=== PATIENT | male | born 1950 | race Caucasian/White ===

== ENCOUNTER 2018-06-10 06:18 | Inpatient (IN) | payer MEDICARE, OTHER ==
[~2018-06-10] VITALS: Ht 177.8 cm; Wt 87.2 kg
[2018-06-10] VITALS (11 sets, daily range): BP systolic 140–170; BP diastolic 66–89
[2018-06-10] MEDS ORDERED: labetalol 20mg/4ml (5mg/ml) syringe IV ONE (06:40)
[2018-06-10] MEDS ORDERED: morphine 4 MG/ML inj SYRINge IV ONE (06:40)
[2018-06-10] MEDS ORDERED: ondansetron/PF 4mg/2ml inj IV ONE (06:40)
[2018-06-10 07:39] LABS: BASOPHILS % (AUTO) 0.4 % (0-1); EOSINOPHILS # (AUTO) 0.8 X10'3 (0-0.9); EOSINOPHILS % (AUTO) 9.7 % (0-6); HEMATOCRIT 45.7 % (42.0-52.0); HEMOGLOBIN 12.3 g/dl (14.0-17.9); LYMPHOCYTES # (AUTO) 1.4 X10'3 (1.1-4.8); LYMPHOCYTES % (AUTO) 16.8 % (21-51); MEAN CORPUSCULAR HEMOGLOBIN 23.7 PG (27.0-31.0); MEAN CORPUSCULAR HGB CONC 26.9 % (33.0-36.5); MEAN CORPUSCULAR VOLUME 88.1 FL (78-98); MEAN PLATELET VOLUME 8.5 FL (7.4-10.4); MONOCYTES # (AUTO) 0.6 X10'3 (0-0.9); MONOCYTES % (AUTO) 7.2 % (2-12); NEUTROPHILS # (AUTO) 5.3 X10'3 (1.8-7.7); NEUTROPHILS % (AUTO) 65.9 % (42-75); PLATELET COUNT 199 X10'3 (140-440); RED BLOOD COUNT 5.19 X10'6 (4.70-6.10); RED CELL DISTRIBUTION WIDTH 13.1 % (11.5-14.5); WHITE BLOOD COUNT 8.1 X10'3 (4.5-11.0)
[2018-06-10 07:56] LABS: ALANINE AMINOTRANSFERASE 34 U/L (12-78); ALBUMIN 4.3 G/DL (3.4-5.0); ALBUMIN/GLOBULIN RATIO 1.2 (1.1-1.5); ALKALINE PHOSPHATASE 96 IU/L (46-116); ANION GAP 9 (8-16); ASPARTATE AMINO TRANSFERASE 33 U/L (10-37); BILIRUBIN,TOTAL 0.5 MG/DL (0.1-1.0); BLOOD UREA NITROGEN 18 MG/DL (7-18); BUN/CREATININE RATIO 14.6 (5.4-32.0); CALCIUM 9.3 MG/DL (8.5-10.1); CHLORIDE 105 MMOL/L (99-107); CREATININE 1.23 MG/DL (0.60-1.10); GLUCOSE 154 MG/DL (70-104); POTASSIUM 3.7 MMOL/L (3.5-5.1); SODIUM 140 MMOL/L (135-145); TOTAL CARBON DIOXIDE 25.7 MMOL/L (24-32); eGFR 59 ML/MIN
[2018-06-10 08:02] LABS: MAGNESIUM 2.1 MG/DL (1.5-2.4)
[2018-06-10] MEDS ORDERED: iohexol 350MG/ML 100ml bottle IV ONE ×2 (08:07→14:40)
[2018-06-10] MEDS ORDERED: aspirin 325mg tablet PO ONE (09:05)
[2018-06-10] MEDS ORDERED: aspirin 81mg tab.chew PO ONE ×2 (09:40→17:20)
[2018-06-10] MEDS ORDERED: potassium Cl 20 mEq SR tablet PO PRN (09:40)
[2018-06-10] MEDS ORDERED: ondansetron/PF 4mg/2ml inj IV PRN (09:40)
[2018-06-10] MEDS ORDERED: magnesium 4gm in 100ml NS 100 ML IV PRN (09:40)
[2018-06-10] MEDS ORDERED: magnesium 1gm/100ml D5W IVPB 100 ML IV PRN (09:40)
[2018-06-10] MEDS ORDERED: potassium Cl 40MEQ/NS 500ml 500 ML IV PRN ×2 (09:40)
[2018-06-10] MEDS ORDERED: morphine 4 MG/ML inj SYRINge IV PRN ×3 (09:40→17:20)
[2018-06-10] MEDS ORDERED: magnesium Cl slow-release 64mg tablet PO PRN (09:40)
[2018-06-10] MEDS ORDERED: mag hydrox/Alum hydrox/simeth 30ml oral suspension PO PRN (09:40)
[2018-06-10] MEDS ORDERED: heparin 10,000 units/1 ML INJ IV PRN (09:50)
[2018-06-10] MEDS ORDERED: heparin 10,000 units/1 ML INJ IV ONE ×2 (09:50→09:55)
[2018-06-10 10:16] LABS: INR 1.1 INR; PARTIAL THROMBOPLASTIN TIME 27 SECONDS (22-32); PROTHROMBIN TIME 10.9 SECONDS (9.0-12.0)
[2018-06-10 10:34] LABS: CLARITY,URINE CLEAR (Clear); GLUCOSE, URINE NEGATIVE (Neg); KETONES,URINE NEGATIVE (Neg); LEUKOCYTE ESTERASE ,URINE NEGATIVE (Neg); NITRITES, URINE NEGATIVE (Neg); OCCULT BLOOD,URINE NEGATIVE (Neg); PH,URINE 5.5 (4.8-8.0); PROTEIN,URINE NEGATIVE (Neg); UROBILINOGEN,URINE 0.2 E.U/dL (0.2-1.0)
[2018-06-10 10:35] LABS: COLOR,URINE STRAW (Yellow); UA COLLECTION TYPE CLN CATCH MIDSTREAM
[2018-06-10] MEDS ORDERED: ASPI-1265 PO (11:02)
[2018-06-10 11:51] LABS: BASOPHILS # (AUTO) 0.1 X10'3 (0-0.2); BASOPHILS % (AUTO) 1.2 % (0-1); EOSINOPHILS # (AUTO) 0.3 X10'3 (0-0.9); HEMATOCRIT 45.1 % (42.0-52.0); LYMPHOCYTES # (AUTO) 1.7 X10'3 (1.1-4.8); LYMPHOCYTES % (AUTO) 16.4 % (21-51); MEAN CORPUSCULAR HEMOGLOBIN 29.7 PG (27.0-31.0); MEAN CORPUSCULAR HGB CONC 33.3 % (33.0-36.5); MEAN CORPUSCULAR VOLUME 89.2 FL (78-98); MEAN PLATELET VOLUME 8.8 FL (7.4-10.4); MONOCYTES # (AUTO) 0.8 X10'3 (0-0.9); MONOCYTES % (AUTO) 7.9 % (2-12); NEUTROPHILS # (AUTO) 7.2 X10'3 (1.8-7.7); NEUTROPHILS % (AUTO) 71.5 % (42-75); PLATELET COUNT 192 X10'3 (140-440); RED BLOOD COUNT 5.05 X10'6 (4.70-6.10); RED CELL DISTRIBUTION WIDTH 13.8 % (11.5-14.5); WHITE BLOOD COUNT 10.1 X10'3 (4.5-11.0)
[2018-06-10] MEDS: nitroGLYCERIN 0.2mg/hour patch TD SCH (12:31)
[2018-06-10] MEDS ORDERED: fentaNYL/PF 50MCG/1 ML 2ML syringe ONE (14:39)
[2018-06-10] MEDS ORDERED: diphenhydrAMINE 50 mg/ml inj ONE (14:39)
[2018-06-10] MEDS ORDERED: iohexol 350 MG/ML 50ML vial IV ONE ×2 (14:40→16:03)
[2018-06-10] MEDS ORDERED: midazolam 2 mg/2 ml injection ONE (14:40)
[2018-06-10] MEDS ORDERED: LIDOcaine 1% 30ml preserv. free vial ONE (14:40)
[2018-06-10] MEDS ORDERED: hydrALAZINE 20mg/ml inj. IV ONE (16:02)
[2018-06-10] MEDS ORDERED: acetaminophen 325mg tablet PO PRN (17:20)
[2018-06-10] MEDS ORDERED: magnesium hydroxide 30ml (MOM) UD suspension PO PRN (17:20)
[2018-06-10] MEDS ORDERED: cyclobenzaprine 10mg tablet PO PRN (17:20)
[2018-06-10] MEDS ORDERED: OXAZEpam 15mg capsule PO PRN (17:20)
[2018-06-10] MEDS ORDERED: proCHLORperazine 10 MG/2 ml inj IV PRN (17:20)
[2018-06-10] MEDS ORDERED: nitroGLYCERIN-Tridil 50MG/D5W 250 ML IV PRN (17:20)
[2018-06-10] MEDS ORDERED: morphine 10mg/ml inj. IV PRN (17:20)
[2018-06-10] MEDS ORDERED: HYDROcodone/acetaminophen 10/325mg tab PO PRN ×2 (17:20)
[2018-06-10] MEDS ORDERED: MESSAGE TO NURSING PO ONE ×4 (17:35)
[2018-06-10] MEDS ORDERED: dextrose 50%-water 50ml dispensing syringe IV PRN (17:35)
[2018-06-10] MEDS ORDERED: cefazolin/dext.iso 2gm/50ml 50 ML IV ONE (17:35)
[2018-06-10] MEDS ORDERED: vancomycin/NS 1 GM ADD-VANTAGE 250 ML IV ONE (17:35)
[2018-06-10] MEDS: normal saline 1000ml 1,000 ML IV SCH (17:38)
[2018-06-10 17:51] LABS: HEMATOCRIT 43.7 % (42.0-52.0); HEMOGLOBIN 14.9 g/dl (14.0-17.9); MEAN CORPUSCULAR HEMOGLOBIN 30.1 PG (27.0-31.0); MEAN CORPUSCULAR VOLUME 88.4 FL (78-98); MEAN PLATELET VOLUME 9.4 FL (7.4-10.4); PLATELET COUNT 201 X10'3 (140-440); RED BLOOD COUNT 4.94 X10'6 (4.70-6.10); RED CELL DISTRIBUTION WIDTH 13.9 % (11.5-14.5); WHITE BLOOD COUNT 13.2 X10'3 (4.5-11.0)
[2018-06-10] MEDS: insulin Lispro (HumaLOG) vial - multi-dose SQ SCH (18:00)
[2018-06-10 18:01] LABS: ALBUMIN 3.8 G/DL (3.4-5.0); ANION GAP 9 (8-16); BLOOD UREA NITROGEN 17 MG/DL (7-18); CALCIUM 8.7 MG/DL (8.5-10.1); CHLORIDE 104 MMOL/L (99-107); CREATININE 1.13 MG/DL (0.60-1.10); POTASSIUM 3.5 MMOL/L (3.5-5.1); SODIUM 139 MMOL/L (135-145); TOTAL CARBON DIOXIDE 25.9 MMOL/L (24-32); eGFR 65 ML/MIN
[2018-06-10 18:02] LABS: GLUCOSE 107 MG/DL (70-104); INR 1.1 INR; PARTIAL THROMBOPLASTIN TIME 43 SECONDS (22-32); PROTHROMBIN TIME 11.4 SECONDS (9.0-12.0)
[2018-06-10 18:03] LABS: HEMOGLOBIN A1C 5.9 % (4.5-6.2)
[2018-06-10] MEDS: metoprolol tartrate 25mg tablet PO SCH ×2 (20:00→20:21)
[2018-06-10] MEDS: mupirocin 2% nasal ointment 1gm UD NS SCH (20:21)
[2018-06-10] MEDS: docusate sod 100mg capsule PO SCH (20:21)
[2018-06-11] VITALS (24 sets, daily range): BP systolic 117–159; BP diastolic 60–81
[2018-06-11] MEDS: normal saline 1000ml 1,000 ML IV SCH (00:50)
[2018-06-11 01:10] LABS: ALBUMIN 3.5 G/DL (3.4-5.0); ANION GAP 10 (8-16); BLOOD UREA NITROGEN 14 MG/DL (7-18); BUN/CREATININE RATIO 12.7 (5.4-32.0); CALCIUM 8.6 MG/DL (8.5-10.1); CHLORIDE 106 MMOL/L (99-107); GLUCOSE 118 MG/DL (70-104); MAGNESIUM 2.1 MG/DL (1.5-2.4); POTASSIUM 3.4 MMOL/L (3.5-5.1); SODIUM 141 MMOL/L (135-145); TOTAL CARBON DIOXIDE 25.2 MMOL/L (24-32); eGFR 67 ML/MIN
[2018-06-11 02:05] LABS: BASOPHILS % (AUTO) 0.4 % (0-1); EOSINOPHILS # (AUTO) 0.5 X10'3 (0-0.9); EOSINOPHILS % (AUTO) 4.3 % (0-6); HEMATOCRIT 40.4 % (42.0-52.0); HEMOGLOBIN 13.8 g/dl (14.0-17.9); LYMPHOCYTES # (AUTO) 1.5 X10'3 (1.1-4.8); LYMPHOCYTES % (AUTO) 12.5 % (21-51); MEAN CORPUSCULAR HEMOGLOBIN 30.2 PG (27.0-31.0); MEAN CORPUSCULAR VOLUME 88.7 FL (78-98); MEAN PLATELET VOLUME 9.9 FL (7.4-10.4); MONOCYTES # (AUTO) 1.3 X10'3 (0-0.9); MONOCYTES % (AUTO) 10.6 % (2-12); NEUTROPHILS # (AUTO) 8.6 X10'3 (1.8-7.7); NEUTROPHILS % (AUTO) 72.2 % (42-75); PLATELET COUNT 193 X10'3 (140-440); RED BLOOD COUNT 4.56 X10'6 (4.70-6.10); RED CELL DISTRIBUTION WIDTH 13.8 % (11.5-14.5); WHITE BLOOD COUNT 11.9 X10'3 (4.5-11.0)
[2018-06-11] MEDS: potassium Cl 20 mEq SR tablet PO PRN ×3 (04:53→21:01)
[2018-06-11] MEDS: K and/or MAG REPLACEMENT MC SCH (08:00)
[2018-06-11] MEDS ORDERED: nitroGLYCERIN 0.2mg/hour patch TD SCH (08:00)
[2018-06-11] MEDS: metoprolol tartrate 25mg tablet PO SCH ×2 (08:00)
[2018-06-11 08:05] LABS: ABG BASE EXCESS 0.4 mmol/L (-2.0-3.0); ABG HCO3 24.5 mmol/L (22.0-26.0); ABG OXYGEN SATURATION 95.3 % (95-98); ABG PCO2 (T) 37.6 mmHg (35.0-48.0); ABG PH (T) 7.431 (7.350-7.450); FCOHb 0.7 % (0.5-1.5); FMetHb 0.3 % (0.3-1.12); FO2Hb 94.3 % (94-100); TOTAL HEMOGLOBIN 14.8 G/dl (14.0-18.0)
[2018-06-11] MEDS: atorvastatin 20mg tablet PO SCH (08:42)
[2018-06-11] MEDS: aspirin 81mg tab.chew PO SCH (08:42)
[2018-06-11] MEDS: mupirocin 2% nasal ointment 1gm UD NS SCH ×2 (08:43→21:00)
[2018-06-11] MEDS: docusate sod 100mg capsule PO SCH ×2 (08:43→21:00)
[2018-06-11] MEDS: insulin Lispro (HumaLOG) vial - multi-dose SQ SCH ×3 (09:00→17:53)
[2018-06-11] MEDS: nitroGLYCERIN 0.2mg/hour patch TD SCH (09:33)
[2018-06-11] MEDS ORDERED: MESSAGE TO NURSING PO ONE (10:00)
[2018-06-11] MEDS ORDERED: hydrALAZINE 20mg/ml inj. IV PRN (11:20)
[2018-06-11] MEDS: Potassium Cl inj 20 MEQ in normal saline 1000ml 1,000 ML IV SCH (14:47)
[2018-06-11] MEDS: insulin regular, human inj. 100 UNITS in normal saline 100ml IV soln 100 ML IV SCH ×2 (17:35)
[2018-06-11] MEDS: metoprolol tartrate 12.5mg (1/2 tablet) PO SCH (21:00)
[2018-06-12] VITALS (22 sets, daily range): BP systolic 96–172; BP diastolic 53–91
[2018-06-12 03:17] LABS: BASOPHILS % (AUTO) 0.4 % (0-1); EOSINOPHILS # (AUTO) 0.6 X10'3 (0-0.9); HEMOGLOBIN 14.4 g/dl (14.0-17.9); LYMPHOCYTES # (AUTO) 1.8 X10'3 (1.1-4.8); LYMPHOCYTES % (AUTO) 16.7 % (21-51); MEAN CORPUSCULAR HEMOGLOBIN 30.2 PG (27.0-31.0); MEAN CORPUSCULAR HGB CONC 34.2 % (33.0-36.5); MEAN CORPUSCULAR VOLUME 88.3 FL (78-98); MEAN PLATELET VOLUME 8.4 FL (7.4-10.4); MONOCYTES # (AUTO) 1.2 X10'3 (0-0.9); MONOCYTES % (AUTO) 11.6 % (2-12); NEUTROPHILS % (AUTO) 65.3 % (42-75); PLATELET COUNT 186 X10'3 (140-440); RED BLOOD COUNT 4.76 X10'6 (4.70-6.10); RED CELL DISTRIBUTION WIDTH 13.7 % (11.5-14.5); WHITE BLOOD COUNT 10.7 X10'3 (4.5-11.0)
[2018-06-12 03:30] LABS: INR 1.1 INR; PROTHROMBIN TIME 11.3 SECONDS (9.0-12.0)
[2018-06-12 03:37] LABS: ALBUMIN 3.4 G/DL (3.4-5.0); ANION GAP 9 (8-16); BLOOD UREA NITROGEN 12 MG/DL (7-18); BUN/CREATININE RATIO 11.7 (5.4-32.0); CHLORIDE 106 MMOL/L (99-107); CHOL/HDL RATIO 3.4 (0.00-4.99); CHOLESTEROL 168 MG/DL (0-200); CREATININE 1.03 MG/DL (0.60-1.10); GLUCOSE 115 MG/DL (70-104); HDL CHOLESTEROL 50 MG/DL (35-60); LDL CHOLESTEROL 106 MG/DL (50-100); MAGNESIUM 2.3 MG/DL (1.5-2.4); SODIUM 140 MMOL/L (135-145); TOTAL CARBON DIOXIDE 24.7 MMOL/L (24-32); TRIGLYCERIDES 78 MG/DL (20-135); eGFR 72 ML/MIN
[2018-06-12] MEDS: Potassium Cl inj 20 MEQ in normal saline 1000ml 1,000 ML IV SCH (03:41)
[2018-06-12 07:40] LABS: PHOSPHORUS 2.8 MG/DL (2.3-4.5)
[2018-06-12] MEDS: metoprolol tartrate 12.5mg (1/2 tablet) PO SCH (07:51)
[2018-06-12] MEDS: docusate sod 100mg capsule PO SCH ×2 (07:51→20:00)
[2018-06-12] MEDS: atorvastatin 20mg tablet PO SCH (07:51)
[2018-06-12] MEDS: nitroGLYCERIN 0.2mg/hour patch TD SCH (07:51)
[2018-06-12] MEDS: aspirin 81mg tab.chew PO SCH (07:51)
[2018-06-12] MEDS: insulin regular, human inj. 100 UNITS in normal saline 100ml IV soln 100 ML IV SCH ×10 (07:59→21:22)
[2018-06-12] MEDS: K and/or MAG REPLACEMENT MC SCH (08:00)
[2018-06-12] MEDS: mupirocin 2% nasal ointment 1gm UD NS SCH ×2 (08:06→20:33)
[2018-06-12] MEDS ORDERED: papaverine 30 mg/ml 2ml inj. ONE ×2 (09:00→12:16)
[2018-06-12] MEDS: insulin Lispro (HumaLOG) vial - multi-dose SQ SCH ×3 (09:00→18:00)
[2018-06-12] MEDS ORDERED: heparin 10,000 units/1 ML INJ ONE ×2 (09:00→12:16)
[2018-06-12] MEDS ORDERED: LORazepam 2 mg/ml vial IV ONE (10:30)
[2018-06-12] MEDS ORDERED: famotidine 20mg tablet PO ONE (10:30)
[2018-06-12] MEDS ORDERED: sevoflurane 250ml liquid IH ONE ×2 (11:00→12:16)
[2018-06-12 11:28] LABS: CLARITY,URINE CLEAR (Clear); COLOR,URINE YELLOW (Yellow); GLUCOSE, URINE NEGATIVE (Neg); KETONES,URINE TRACE mg/dl (Neg); LEUKOCYTE ESTERASE ,URINE NEGATIVE (Neg); NITRITES, URINE NEGATIVE (Neg); OCCULT BLOOD,URINE NEGATIVE (Neg); PH,URINE 6.5 (4.8-8.0); PROTEIN,URINE NEGATIVE (Neg); UA COLLECTION TYPE NON-SPECIFIED; UROBILINOGEN,URINE 0.2 E.U/dL (0.2-1.0)
[2018-06-12 11:46] LABS: TOTAL PROTEIN,URINE RANDOM 10.2 MG/DL
[2018-06-12] MEDS ORDERED: MIDAZolam 1mg/ml 10ml vial ONE (12:06)
[2018-06-12] MEDS ORDERED: albumin (Human) 5% 250ml 250 ML IV ONE ×2 (12:07→16:46)
[2018-06-12] MEDS ORDERED: SUFENTANIL CITRATE 50 MCG/ML 2ml ampule IV ONE (12:07)
[2018-06-12] MEDS ORDERED: pancuronium br 1mg/ml inj IV ONE (12:07)
[2018-06-12] MEDS ORDERED: LIDOcaine 2% (20mg/ml) 5ml vial ONE (12:07)
[2018-06-12] MEDS ORDERED: propofol inj 20 ML IV ONE (12:07)
[2018-06-12] MEDS ORDERED: calcium chloride 100 MG/1 ML inj IV ONE (12:16)
[2018-06-12] MEDS ORDERED: sodium bicarbonate (8.4%) 1 mEq/ml syringe ONE (12:16)
[2018-06-12] MEDS ORDERED: LIDOcaine 2% (20 mg/ml) 5ml cardiac syringe ONE (12:16)
[2018-06-12] MEDS ORDERED: protamine sulf. 10mg/ml inj. IV ONE (12:16)
[2018-06-12] MEDS ORDERED: potassium Cl 2 mEq/ml inj IV ONE (12:16)
[2018-06-12] MEDS ORDERED: aminocaproic acid 250 MG/1 ML inj. ONE (12:16)
[2018-06-12] MEDS ORDERED: heparin 1,000 units/ml 10ml inj ONE (12:16)
[2018-06-12] MEDS ORDERED: magnesium sulf 1 GM/2 ML ONE (12:16)
[2018-06-12] MEDS ORDERED: NORepinephrine bitartrate 8 MG in NS 250 ML BAG (32 mcg/ml) IV ONE (12:16)
[2018-06-12] MEDS ORDERED: albumin (human) 25% 100 ML IV solution IV ONE (12:16)
[2018-06-12] MEDS ORDERED: phenylephrine 10mg/ml inj. ONE ×2 (12:16)
[2018-06-12 13:01] LABS: ABG HCO3 21.6 mmol/L (22.0-26.0); ABG OXYGEN SATURATION 99.5 % (95-98); ABG PCO2 30.2 mmHg (35.0-45.0); ABG PH 7.472 (7.350-7.450); ABG PO2 515.8 mmHg (60.0-100.0); CL (ABG) 108 mmol/L (99-107); FCOHb 0.7 % (0.5-1.5); FMetHb 0.7 % (0.3-1.12); FO2Hb 98.1 % (94-100); GLUCOSE (ABG) 100 mg/dl (70-105); IONIZED CA (ABG) 1.12 mmol/L (1.03-1.32); K (ABG) 3.7 mmol/L (3.3-5.1); NA (ABG) 140 mmol/L (135-145); TOTAL HEMOGLOBIN 14.1 G/dl (14.0-18.0)
[2018-06-12] MEDS ORDERED: papaverine 30 mg/ml 2ml inj. IA ONE (13:24)
[2018-06-12] MEDS ORDERED: heparin 10,000 units/1 ML INJ IR ONE (13:25)
[2018-06-12 14:30] LABS: ABG BASE EXCESS -1.6 mmol/L (-2.0-3.0); ABG HCO3 22.1 mmol/L (22.0-26.0); ABG OXYGEN SATURATION 99.3 % (95-98); ABG PO2 403.3 mmHg (60.0-100.0); CL (ABG) 102 mmol/L (99-107); FCOHb 0.6 % (0.5-1.5); FMetHb 0.3 % (0.3-1.12); FO2Hb 98.4 % (94-100); GLUCOSE (ABG) 106 mg/dl (70-105); IONIZED CA (ABG) 1.08 mmol/L (1.03-1.32); K (ABG) 4.5 mmol/L (3.3-5.1); NA (ABG) 135 mmol/L (135-145); TOTAL HEMOGLOBIN 12.2 G/dl (14.0-18.0)
[2018-06-12 14:55] LABS: ABG BASE EXCESS VENOUS -1.7 mmol/L; ABG HCO3 VENOUS 22.7 mmol/L; ABG PCO2 VENOUS 37.1 mmHg; ABG PO2 VENOUS 58.6 mmHg; CL (ABG) 104 mmol/L (99-107); FHHb VENOUS 9.2 %; FMetHb VENOUS 0.4 %; FO2Hb VENOUS 89.4 %; GLUCOSE (ABG) 111 mg/dl (70-105); IONIZED CA (ABG) 1.06 mmol/L (1.03-1.32); K (ABG) 4.8 mmol/L (3.3-5.1); NA (ABG) 135 mmol/L (135-145); TOTAL HEMOGLOBIN 11.9 G/dl (14.0-18.0)
[2018-06-12 15:15] LABS: ABG BASE EXCESS -1.9 mmol/L (-2.0-3.0); ABG HCO3 21.8 mmol/L (22.0-26.0); ABG OXYGEN SATURATION 99.4 % (95-98); ABG PCO2 33.9 mmHg (35.0-45.0); ABG PH 7.427 (7.350-7.450); ABG PO2 377.7 mmHg (60.0-100.0); CL (ABG) 105 mmol/L (99-107); FCOHb 0.8 % (0.5-1.5); FMetHb 0.3 % (0.3-1.12); FO2Hb 98.3 % (94-100); GLUCOSE (ABG) 121 mg/dl (70-105); IONIZED CA (ABG) 1.03 mmol/L (1.03-1.32); K (ABG) 4.9 mmol/L (3.3-5.1); NA (ABG) 137 mmol/L (135-145); TOTAL HEMOGLOBIN 11.6 G/dl (14.0-18.0)
[2018-06-12 15:51] LABS: ABG BASE EXCESS -0.8 mmol/L (-2.0-3.0); ABG HCO3 23.3 mmol/L (22.0-26.0); ABG OXYGEN SATURATION 99.4 % (95-98); ABG PCO2 36.8 mmHg (35.0-45.0); ABG PO2 497.3 mmHg (60.0-100.0); CL (ABG) 105 mmol/L (99-107); FCOHb 0.5 % (0.5-1.5); FMetHb 0.4 % (0.3-1.12); FO2Hb 98.5 % (94-100); GLUCOSE (ABG) 118 mg/dl (70-105); IONIZED CA (ABG) 1.16 mmol/L (1.03-1.32); K (ABG) 5.3 mmol/L (3.3-5.1); NA (ABG) 136 mmol/L (135-145)
[2018-06-12 16:11] LABS: ABG BASE EXCESS VENOUS -1.9 mmol/L; ABG HCO3 VENOUS 23.5 mmol/L; ABG PCO2 VENOUS 42.5 mmHg; ABG PO2 VENOUS 47.9 mmHg; CL (ABG) 104 mmol/L (99-107); FCOHb VENOUS 0.9 %; FHHb VENOUS 17.5 %; FMetHb VENOUS 0.6 %; GLUCOSE (ABG) 119 mg/dl (70-105); IONIZED CA (ABG) 1.24 mmol/L (1.03-1.32); K (ABG) 4.7 mmol/L (3.3-5.1); NA (ABG) 137 mmol/L (135-145); TOTAL HEMOGLOBIN 11.9 G/dl (14.0-18.0)
[2018-06-12] MEDS ORDERED: nitroGLYCERIN-Tridil 50MG/D5W 250 ML IV PRN (16:29)
[2018-06-12] MEDS ORDERED: DOPamine 400mg/D5W 250ml 250 ML IV PRN (16:29)
[2018-06-12] MEDS ORDERED: sodium chloride 0.45% 1,000 ML IV SCH (16:29)
[2018-06-12] MEDS ORDERED: magnesium hydroxide 30ml (MOM) UD suspension PO PRN (16:30)
[2018-06-12] MEDS ORDERED: morphine 4 MG/ML inj SYRINge IV PRN (16:30)
[2018-06-12] MEDS ORDERED: Neutra Phos packet PO PRN (16:30)
[2018-06-12] MEDS ORDERED: sodium phosphate inj. 15 MMOL in dextrose 5%-water 150 ML IV PRN (16:30)
[2018-06-12] MEDS ORDERED: magnesium 4gm in 100ml NS 100 ML IV PRN (16:30)
[2018-06-12] MEDS ORDERED: sodium phosphate inj. 30 MMOL in dextrose 5%-water 250 ML IV PRN (16:30)
[2018-06-12] MEDS ORDERED: potassium Cl 20mEq/100mL bag 100 ML IV PRN ×2 (16:30)
[2018-06-12] MEDS ORDERED: normal saline 250ml IV soln 250 ML IV PRN (16:30)
[2018-06-12] MEDS ORDERED: dextrose 50%-water 50ml dispensing syringe IV PRN (16:30)
[2018-06-12] MEDS ORDERED: metoclopramide 5 mg/ml inj IV PRN (16:30)
[2018-06-12] MEDS ORDERED: ondansetron/PF 4mg/2ml inj IV PRN (16:30)
[2018-06-12] MEDS ORDERED: acetaminophen 325mg tablet PO PRN (16:30)
[2018-06-12] MEDS ORDERED: magnesium 1gm/100ml D5W IVPB 100 ML IV PRN (16:30)
[2018-06-12] MEDS ORDERED: HYDROcodone/acetaminophen 10/325mg tab PO PRN (16:30)
[2018-06-12] MEDS ORDERED: albumin (Human) 5% 250ml 250 ML IV PRN (16:30)
[2018-06-12] MEDS ORDERED: insulin regular, human inj. 100 UNITS in normal saline 100ml IV soln 100 ML IV SCH ×2 (16:30)
[2018-06-12 17:20] LABS: ABG BASE EXCESS -2.9 mmol/L (-2.0-3.0); ABG HCO3 22.7 mmol/L (22.0-26.0); ABG OXYGEN SATURATION 98.1 % (95-98); ABG PCO2 (T) 41.2 mmHg (35.0-48.0); ABG PH (T) 7.356 (7.350-7.450); ABG PO2 (T) 124.5 mmHg (83-108); FCOHb 0.5 % (0.5-1.5); FMetHb 0.4 % (0.3-1.12); FO2Hb 97.2 % (94-100); MINUTE VOLUME 7 L/min; PATIENT TEMPERATURE 36.4; PEEP 5 cm H2O; RESPIRATORY RATE 10 b/min; RESPIRATORY RATE (OBSERVED) 10 b/min; TIDAL VOLUME 600 mL; TOTAL HEMOGLOBIN 14.2 G/dl (14.0-18.0)
[2018-06-12 17:26] LABS: BASOPHILS % (AUTO) 0.1 % (0-1); EOSINOPHILS # (AUTO) 0.3 X10'3 (0-0.9); EOSINOPHILS % (AUTO) 1.7 % (0-6); HEMATOCRIT 38.9 % (42.0-52.0); HEMOGLOBIN 13.4 g/dl (14.0-17.9); LYMPHOCYTES # (AUTO) 0.7 X10'3 (1.1-4.8); LYMPHOCYTES % (AUTO) 4.6 % (21-51); MEAN CORPUSCULAR HEMOGLOBIN 30.5 PG (27.0-31.0); MEAN CORPUSCULAR HGB CONC 34.3 % (33.0-36.5); MEAN PLATELET VOLUME 8.3 FL (7.4-10.4); MONOCYTES # (AUTO) 0.9 X10'3 (0-0.9); NEUTROPHILS # (AUTO) 12.9 X10'3 (1.8-7.7); NEUTROPHILS % (AUTO) 87.6 % (42-75); PLATELET COUNT 128 X10'3 (140-440); RED BLOOD COUNT 4.37 X10'6 (4.70-6.10); RED CELL DISTRIBUTION WIDTH 13.8 % (11.5-14.5); WHITE BLOOD COUNT 14.8 X10'3 (4.5-11.0)
[2018-06-12 17:36] LABS: INR 1.2 INR; PARTIAL THROMBOPLASTIN TIME 32 SECONDS (22-32); PROTHROMBIN TIME 12.3 SECONDS (9.0-12.0)
[2018-06-12 17:42] LABS: ALANINE AMINOTRANSFERASE 31 U/L (12-78); ALBUMIN 3.7 G/DL (3.4-5.0); ALBUMIN/GLOBULIN RATIO 1.5 (1.1-1.5); ALKALINE PHOSPHATASE 47 IU/L (46-116); ANION GAP 7 (8-16); ASPARTATE AMINO TRANSFERASE 101 U/L (10-37); BLOOD UREA NITROGEN 12 MG/DL (7-18); BUN/CREATININE RATIO 11.2 (5.4-32.0); CALCIUM 8.4 MG/DL (8.5-10.1); CHLORIDE 108 MMOL/L (99-107); CREATININE 1.07 MG/DL (0.60-1.10); GLUCOSE 104 MG/DL (70-104); MAGNESIUM 3.5 MG/DL (1.5-2.4); PHOSPHORUS 1.9 MG/DL (2.3-4.5); POTASSIUM 4.1 MMOL/L (3.5-5.1); SODIUM 141 MMOL/L (135-145); TOTAL CARBON DIOXIDE 26.3 MMOL/L (24-32); TOTAL PROTEIN 6.1 G/DL (6.4-8.2); eGFR 69 ML/MIN
[2018-06-12] MEDS: niCARDipine/sod cl 20mg/200ml 200 ML IV PRN ×2 (17:50→21:52)
[2018-06-12] MEDS ORDERED: insulin Lispro (HumaLOG) vial - multi-dose SQ SCH (18:00)
[2018-06-12] MEDS: morphine 4 MG/ML inj SYRINge IV PRN ×3 (18:03→23:20)
[2018-06-12] MEDS: vancomycin/NS 1 GM ADD-VANTAGE 250 ML IV SCH (20:33)
[2018-06-12 21:32] LABS: BASOPHILS % (AUTO) 0 % (0-1); EOSINOPHILS # (AUTO) 0.3 X10'3 (0-0.9); EOSINOPHILS % (AUTO) 1.8 % (0-6); HEMATOCRIT 37.8 % (42.0-52.0); HEMOGLOBIN 12.9 g/dl (14.0-17.9); LYMPHOCYTES # (AUTO) 0.6 X10'3 (1.1-4.8); LYMPHOCYTES % (AUTO) 3.4 % (21-51); MEAN CORPUSCULAR HEMOGLOBIN 30.3 PG (27.0-31.0); MEAN CORPUSCULAR HGB CONC 34.1 % (33.0-36.5); MEAN CORPUSCULAR VOLUME 88.8 FL (78-98); MEAN PLATELET VOLUME 8.5 FL (7.4-10.4); MONOCYTES # (AUTO) 0.6 X10'3 (0-0.9); MONOCYTES % (AUTO) 3.3 % (2-12); NEUTROPHILS # (AUTO) 15.5 X10'3 (1.8-7.7); NEUTROPHILS % (AUTO) 91.5 % (42-75); PLATELET COUNT 147 X10'3 (140-440); RED BLOOD COUNT 4.26 X10'6 (4.70-6.10); RED CELL DISTRIBUTION WIDTH 14.1 % (11.5-14.5)
[2018-06-12 21:49] LABS: ALBUMIN 3.6 G/DL (3.4-5.0); ANION GAP 10 (8-16); BLOOD UREA NITROGEN 17 MG/DL (7-18); BUN/CREATININE RATIO 13.4 (5.4-32.0); CALCIUM 8.4 MG/DL (8.5-10.1); CHLORIDE 108 MMOL/L (99-107); CREATININE 1.27 MG/DL (0.60-1.10); GLUCOSE 162 MG/DL (70-104); POTASSIUM 3.8 MMOL/L (3.5-5.1); SODIUM 142 MMOL/L (135-145); TOTAL CARBON DIOXIDE 24.3 MMOL/L (24-32); eGFR 57 ML/MIN
[2018-06-12] MEDS: potassium Cl 20mEq/100mL bag 100 ML IV PRN ×2 (22:49→23:42)
[2018-06-13] VITALS (23 sets, daily range): BP systolic 122–174; BP diastolic 54–82
[2018-06-13] MEDS: ceFAZolin 1GM/D5W- ADD-VANTAGE 50 ML IV SCH ×4 (00:19→23:55)
[2018-06-13] MEDS: morphine 4 MG/ML inj SYRINge IV PRN (00:36)
[2018-06-13] MEDS: niCARDipine/sod cl 20mg/200ml 200 ML IV PRN ×3 (01:16→06:40)
[2018-06-13 03:20] LABS: ABG BASE EXCESS -2.7 mmol/L (-2.0-3.0); ABG HCO3 21.8 mmol/L (22.0-26.0); ABG OXYGEN SATURATION 93.7 % (95-98); ABG PCO2 (T) 37.7 mmHg (35.0-48.0); ABG PH (T) 7.382 (7.350-7.450); ABG PO2 (T) 70.2 mmHg (83-108); FCOHb 0.1 % (0.5-1.5); FMetHb 0.2 % (0.3-1.12); FO2Hb 93.4 % (94-100); PATIENT TEMPERATURE 37.3; PEEP 5 cm H2O; RESPIRATORY RATE (OBSERVED) 11 b/min; TOTAL HEMOGLOBIN 13.6 G/dl (14.0-18.0)
[2018-06-13 03:53] LABS: BASOPHILS % (AUTO) 0 % (0-1); EOSINOPHILS % (AUTO) 0 % (0-6); HEMATOCRIT 37.4 % (42.0-52.0); HEMOGLOBIN 12.6 g/dl (14.0-17.9); LYMPHOCYTES # (AUTO) 0.5 X10'3 (1.1-4.8); LYMPHOCYTES % (AUTO) 2.8 % (21-51); MEAN CORPUSCULAR HEMOGLOBIN 30.1 PG (27.0-31.0); MEAN CORPUSCULAR HGB CONC 33.8 % (33.0-36.5); MEAN CORPUSCULAR VOLUME 89.3 FL (78-98); MEAN PLATELET VOLUME 9.2 FL (7.4-10.4); MONOCYTES # (AUTO) 0.7 X10'3 (0-0.9); MONOCYTES % (AUTO) 3.9 % (2-12); NEUTROPHILS # (AUTO) 16.9 X10'3 (1.8-7.7); NEUTROPHILS % (AUTO) 93.3 % (42-75); PLATELET COUNT 149 X10'3 (140-440); RED BLOOD COUNT 4.19 X10'6 (4.70-6.10); RED CELL DISTRIBUTION WIDTH 13.9 % (11.5-14.5); WHITE BLOOD COUNT 18.1 X10'3 (4.5-11.0)
[2018-06-13 04:09] LABS: ALANINE AMINOTRANSFERASE 34 U/L (12-78); ALBUMIN 3.7 G/DL (3.4-5.0); ALBUMIN/GLOBULIN RATIO 1.4 (1.1-1.5); ALKALINE PHOSPHATASE 50 IU/L (46-116); ANION GAP 9 (8-16); ASPARTATE AMINO TRANSFERASE 98 U/L (10-37); BILIRUBIN,TOTAL 0.7 MG/DL (0.1-1.0); BLOOD UREA NITROGEN 19 MG/DL (7-18); BUN/CREATININE RATIO 15.3 (5.4-32.0); CALCIUM 8.8 MG/DL (8.5-10.1); CHLORIDE 109 MMOL/L (99-107); CREATININE 1.24 MG/DL (0.60-1.10); GLUCOSE 127 MG/DL (70-104); MAGNESIUM 2.9 MG/DL (1.5-2.4); PHOSPHORUS 3.1 MG/DL (2.3-4.5); POTASSIUM 4.4 MMOL/L (3.5-5.1); SODIUM 142 MMOL/L (135-145); TOTAL CARBON DIOXIDE 23.9 MMOL/L (24-32); TOTAL PROTEIN 6.4 G/DL (6.4-8.2); eGFR 58 ML/MIN
[2018-06-13 04:19] LABS: INR 1.1 INR; PARTIAL THROMBOPLASTIN TIME 25 SECONDS (22-32); PROTHROMBIN TIME 11.6 SECONDS (9.0-12.0)
[2018-06-13] MEDS: insulin regular, human inj. 100 UNITS in normal saline 100ml IV soln 100 ML IV SCH ×2 (05:04)
[2018-06-13 05:11] LABS: ACTIVATED CLOTTING TIME 120 SEC (101-148)
[2018-06-13 05:11] LABS: ACT @ 1.70 U 264 SEC (193-297); ACT @ 2.84 U 353 SEC (260-420); BASELINE ACT 139 SEC (101-148); PATIENT WEIGHT 87.0k KG
[2018-06-13] MEDS: mupirocin 2% nasal ointment 1gm UD NS SCH ×2 (07:43→20:24)
[2018-06-13] MEDS: pantoprazole 40mg Tablet.DR PO SCH (07:43)
[2018-06-13] MEDS: atorvastatin 10mg tablet PO SCH (07:43)
[2018-06-13] MEDS: metoprolol tartrate 12.5mg (1/2 tablet) PO SCH ×2 (07:43→20:24)
[2018-06-13] MEDS: docusate sod 100mg capsule PO SCH ×2 (07:43→20:24)
[2018-06-13] MEDS: aspirin 325mg tablet, delayed-release (Ecotrin) PO SCH (07:43)
[2018-06-13] MEDS: K and/or MAG REPLACEMENT MC SCH (08:00)
[2018-06-13] MEDS: insulin Lispro (HumaLOG) vial - multi-dose SQ SCH ×2 (08:20→13:00)
[2018-06-13] MEDS: vancomycin/NS 1 GM ADD-VANTAGE 250 ML IV SCH ×2 (08:23→20:24)
[2018-06-13 10:47] LABS: ALBUMIN 3.5 G/DL (3.4-5.0); ANION GAP 6 (8-16); BLOOD UREA NITROGEN 18 MG/DL (7-18); BUN/CREATININE RATIO 16.5 (5.4-32.0); CALCIUM 8.5 MG/DL (8.5-10.1); CHLORIDE 110 MMOL/L (99-107); CREATININE 1.09 MG/DL (0.60-1.10); GLUCOSE 116 MG/DL (70-104); POTASSIUM 4.6 MMOL/L (3.5-5.1); SODIUM 141 MMOL/L (135-145); TOTAL CARBON DIOXIDE 24.7 MMOL/L (24-32); eGFR 67 ML/MIN
[2018-06-13] MEDS: ketorolac tromethamine 15mg/ml inj. IV SCH ×2 (14:00→20:24)
[2018-06-13] MEDS: HYDROcodone/acetaminophen 10/325mg tab PO PRN (17:11)
[2018-06-14] VITALS (14 sets, daily range): BP systolic 119–167; BP diastolic 63–85
[2018-06-14] MEDS: ketorolac tromethamine 15mg/ml inj. IV SCH ×2 (02:31→08:26)
[2018-06-14 04:25] LABS: BASOPHILS % (AUTO) 0 % (0-1); EOSINOPHILS # (AUTO) 0.2 X10'3 (0-0.9); EOSINOPHILS % (AUTO) 1.4 % (0-6); HEMATOCRIT 33.1 % (42.0-52.0); LYMPHOCYTES # (AUTO) 0.6 X10'3 (1.1-4.8); LYMPHOCYTES % (AUTO) 3.2 % (21-51); MEAN CORPUSCULAR HEMOGLOBIN 29.9 PG (27.0-31.0); MEAN CORPUSCULAR HGB CONC 33.1 % (33.0-36.5); MEAN CORPUSCULAR VOLUME 90.4 FL (78-98); MEAN PLATELET VOLUME 8.9 FL (7.4-10.4); MONOCYTES # (AUTO) 1.4 X10'3 (0-0.9); MONOCYTES % (AUTO) 7.6 % (2-12); NEUTROPHILS # (AUTO) 15.8 X10'3 (1.8-7.7); NEUTROPHILS % (AUTO) 87.8 % (42-75); PLATELET COUNT 128 X10'3 (140-440); RED BLOOD COUNT 3.67 X10'6 (4.70-6.10)
[2018-06-14 04:36] LABS: ALBUMIN 3.2 G/DL (3.4-5.0); ANION GAP 8 (8-16); BLOOD UREA NITROGEN 27 MG/DL (7-18); BUN/CREATININE RATIO 21.3 (5.4-32.0); CALCIUM 8.5 MG/DL (8.5-10.1); CHLORIDE 107 MMOL/L (99-107); CREATININE 1.27 MG/DL (0.60-1.10); GLUCOSE 175 MG/DL (70-104); MAGNESIUM 2.4 MG/DL (1.5-2.4); PHOSPHORUS 3.5 MG/DL (2.3-4.5); POTASSIUM 4.7 MMOL/L (3.5-5.1); SODIUM 139 MMOL/L (135-145); TOTAL CARBON DIOXIDE 24.5 MMOL/L (24-32); eGFR 57 ML/MIN
[2018-06-14] MEDS: K and/or MAG REPLACEMENT MC SCH (08:00)
[2018-06-14] MEDS: metoprolol tartrate 12.5mg (1/2 tablet) PO SCH ×2 (08:25→20:21)
[2018-06-14] MEDS: aspirin 325mg tablet, delayed-release (Ecotrin) PO SCH (08:25)
[2018-06-14] MEDS: pantoprazole 40mg Tablet.DR PO SCH (08:25)
[2018-06-14] MEDS: docusate sod 100mg capsule PO SCH ×2 (08:25→20:21)
[2018-06-14] MEDS: ceFAZolin 1GM/D5W- ADD-VANTAGE 50 ML IV SCH (08:26)
[2018-06-14] MEDS: atorvastatin 10mg tablet PO SCH (08:26)
[2018-06-14] MEDS: morphine 4 MG/ML inj SYRINge IV PRN (08:27)
[2018-06-14] MEDS: mupirocin 2% nasal ointment 1gm UD NS SCH (08:32)
[2018-06-14] MEDS ORDERED: magnesium 1gm/100ml D5W IVPB 100 ML IV PRN (09:15)
[2018-06-14] MEDS ORDERED: potassium Cl 40MEQ/NS 500ml 500 ML IV PRN ×2 (09:15)
[2018-06-14] MEDS ORDERED: magnesium Cl slow-release 64mg tablet PO PRN (09:15)
[2018-06-14] MEDS ORDERED: potassium Cl 20 mEq SR tablet PO PRN ×2 (09:15)
[2018-06-14] MEDS ORDERED: magnesium 4gm in 100ml NS 100 ML IV PRN (09:15)
[2018-06-14] MEDS: potassium Cl 20 mEq SR tablet PO SCH (20:00)
[2018-06-14] MEDS: magnesium Cl slow-release 64mg tablet PO SCH (20:00)
[2018-06-14] MEDS: HYDROcodone/acetaminophen 10/325mg tab PO PRN (20:57)
[2018-06-15 03:00] VITALS: BP 158/87
[2018-06-15 05:39] LABS: BASOPHILS % (AUTO) 0.2 % (0-1); EOSINOPHILS # (AUTO) 0.2 X10'3 (0-0.9); EOSINOPHILS % (AUTO) 1.2 % (0-6); HEMATOCRIT 34.5 % (42.0-52.0); HEMOGLOBIN 11.5 g/dl (14.0-17.9); LYMPHOCYTES % (AUTO) 7.7 % (21-51); MEAN CORPUSCULAR HEMOGLOBIN 29.8 PG (27.0-31.0); MEAN CORPUSCULAR HGB CONC 33.3 % (33.0-36.5); MEAN CORPUSCULAR VOLUME 89.5 FL (78-98); MEAN PLATELET VOLUME 9.6 FL (7.4-10.4); MONOCYTES # (AUTO) 1.5 X10'3 (0-0.9); MONOCYTES % (AUTO) 11.4 % (2-12); NEUTROPHILS # (AUTO) 10.8 X10'3 (1.8-7.7); NEUTROPHILS % (AUTO) 79.5 % (42-75); PLATELET COUNT 143 X10'3 (140-440); RED BLOOD COUNT 3.85 X10'6 (4.70-6.10); RED CELL DISTRIBUTION WIDTH 13.9 % (11.5-14.5); WHITE BLOOD COUNT 13.5 X10'3 (4.5-11.0)
[2018-06-15 05:47] LABS: ALBUMIN 3.1 G/DL (3.4-5.0); ANION GAP 8 (8-16); BLOOD UREA NITROGEN 28 MG/DL (7-18); BUN/CREATININE RATIO 27.5 (5.4-32.0); CALCIUM 8.8 MG/DL (8.5-10.1); CHLORIDE 105 MMOL/L (99-107); CREATININE 1.02 MG/DL (0.60-1.10); GLUCOSE 117 MG/DL (70-104); MAGNESIUM 2.1 MG/DL (1.5-2.4); POTASSIUM 4.2 MMOL/L (3.5-5.1); SODIUM 139 MMOL/L (135-145); TOTAL CARBON DIOXIDE 26.5 MMOL/L (24-32); eGFR 73 ML/MIN
[2018-06-15 06:00] VITALS: BP 162/92
[2018-06-15] MEDS: potassium Cl 20 mEq SR tablet PO SCH ×2 (07:38→22:20)
[2018-06-15] MEDS: pantoprazole 40mg Tablet.DR PO SCH (07:38)
[2018-06-15] MEDS: aspirin 325mg tablet, delayed-release (Ecotrin) PO SCH (07:38)
[2018-06-15] MEDS: docusate sod 100mg capsule PO SCH ×2 (07:38→22:20)
[2018-06-15] MEDS: atorvastatin 10mg tablet PO SCH (07:38)
[2018-06-15] MEDS: magnesium Cl slow-release 64mg tablet PO SCH ×2 (07:39→22:20)
[2018-06-15] MEDS: metoprolol tartrate 12.5mg (1/2 tablet) PO SCH ×2 (07:41→22:20)
[2018-06-15] MEDS: lisinopril 10 MG tablet PO SCH (07:44)
[2018-06-15] MEDS: K and/or MAG REPLACEMENT MC SCH (08:00)
[2018-06-15 11:00] VITALS: BP 141/77
[2018-06-15 15:00] VITALS: BP 147/87
[2018-06-15 18:00] VITALS: BP 165/94
[2018-06-15 22:00] VITALS: BP 154/93
[2018-06-16 02:00] VITALS: BP 149/86
[2018-06-16 05:31] LABS: BASOPHILS % (AUTO) 0.3 % (0-1); EOSINOPHILS # (AUTO) 0.4 X10'3 (0-0.9); EOSINOPHILS % (AUTO) 3.3 % (0-6); HEMATOCRIT 36.9 % (42.0-52.0); HEMOGLOBIN 12.7 g/dl (14.0-17.9); LYMPHOCYTES # (AUTO) 1.4 X10'3 (1.1-4.8); MEAN CORPUSCULAR HEMOGLOBIN 30.3 PG (27.0-31.0); MEAN CORPUSCULAR HGB CONC 34.4 % (33.0-36.5); MEAN PLATELET VOLUME 9.4 FL (7.4-10.4); MONOCYTES # (AUTO) 1.4 X10'3 (0-0.9); MONOCYTES % (AUTO) 12.2 % (2-12); NEUTROPHILS # (AUTO) 8.3 X10'3 (1.8-7.7); NEUTROPHILS % (AUTO) 72.2 % (42-75); PLATELET COUNT 169 X10'3 (140-440); RED BLOOD COUNT 4.19 X10'6 (4.70-6.10); RED CELL DISTRIBUTION WIDTH 13.7 % (11.5-14.5); WHITE BLOOD COUNT 11.4 X10'3 (4.5-11.0)
[2018-06-16 05:38] LABS: ALBUMIN 3.2 G/DL (3.4-5.0); ANION GAP 8 (8-16); BLOOD UREA NITROGEN 21 MG/DL (7-18); BUN/CREATININE RATIO 21.4 (5.4-32.0); CALCIUM 9.2 MG/DL (8.5-10.1); CHLORIDE 104 MMOL/L (99-107); CREATININE 0.98 MG/DL (0.60-1.10); GLUCOSE 107 MG/DL (70-104); MAGNESIUM 2.1 MG/DL (1.5-2.4); POTASSIUM 4.2 MMOL/L (3.5-5.1); SODIUM 141 MMOL/L (135-145); TOTAL CARBON DIOXIDE 29.2 MMOL/L (24-32); eGFR 76 ML/MIN
[2018-06-16 06:00] VITALS: BP 155/89
[2018-06-16] MEDS ORDERED: furosemide 40mg/4ml inj IV ONE (07:25)
[2018-06-16] MEDS ORDERED: ATOR10TA PO (07:40)
[2018-06-16] MEDS ORDERED: COL100C PO (07:40)
[2018-06-16] MEDS ORDERED: METO25TA6 PO (07:40)
[2018-06-16] MEDS ORDERED: HYDR-3972 PO (07:40)
[2018-06-16] MEDS ORDERED: LISI10TA4 PO (07:40)
[2018-06-16] MEDS ORDERED: aspirin 81mg tab.chew PO SCH (08:00)
[2018-06-16] MEDS ORDERED: metoprolol tartrate 25mg tablet PO SCH (08:00)
[2018-06-16] MEDS: K and/or MAG REPLACEMENT MC SCH (08:00)
[2018-06-16] MEDS: atorvastatin 10mg tablet PO SCH (08:59)
[2018-06-16] MEDS: pantoprazole 40mg Tablet.DR PO SCH (08:59)
[2018-06-16] MEDS: potassium Cl 20 mEq SR tablet PO SCH (08:59)
[2018-06-16] MEDS: lisinopril 10 MG tablet PO SCH (08:59)
[2018-06-16] MEDS: magnesium Cl slow-release 64mg tablet PO SCH (08:59)
[2018-06-16] MEDS: docusate sod 100mg capsule PO SCH (09:00)
[2018-06-16 11:00] VITALS: BP 112/81
== END 2018-06-16 14:41 | disposition home health service (06) | DRG 234 ==
LOC: ER 06:19 → ED HOLD 09:36 → PCU 3S 10:30 → ICU 2S 16:45 → PCU 3S 06-14 12:30
PROVIDERS: ADMIT Internal Medicine; ATTEND Thoracic Surgery (Cardiothoracic Vascular Surgery)
PROC: 4A023N7 Measurement of Cardiac Sampling and Pressure, Left Heart, Percutaneous Approach (ICD-10-PCS; principal; 2018-06-10)
PROC: B2111ZZ Fluoroscopy of Multiple Coronary Arteries using Low Osmolar Contrast (ICD-10-PCS; 2018-06-10)
PROC: B2151ZZ Fluoroscopy of Left Heart using Low Osmolar Contrast (ICD-10-PCS; 2018-06-10)
PROC: B41F1ZZ Fluoroscopy of Right Lower Extremity Arteries using Low Osmolar Contrast (ICD-10-PCS; 2018-06-10)
PROC: B3201ZZ Computerized Tomography (CT Scan) of Thoracic Aorta using Low Osmolar Contrast (ICD-10-PCS; 2018-06-10)
PROC: B3111ZZ Fluoroscopy of Right Brachiocephalic-Subclavian Artery using Low Osmolar Contrast (ICD-10-PCS; 2018-06-10)
PROC: B3121ZZ Fluoroscopy of Left Subclavian Artery using Low Osmolar Contrast (ICD-10-PCS; 2018-06-10)
PROC: B4101ZZ Fluoroscopy of Abdominal Aorta using Low Osmolar Contrast (ICD-10-PCS; 2018-06-10)
PROC: 02100Z9 Bypass Coronary Artery, One Artery from Left Internal Mammary, Open Approach (ICD-10-PCS; 2018-06-12)
PROC: 021309W Bypass Coronary Artery, Four or More Arteries from Aorta with Autologous Venous Tissue, Open Approach (ICD-10-PCS; 2018-06-12)
PROC: 06BQ4ZZ Excision of Left Saphenous Vein, Percutaneous Endoscopic Approach (ICD-10-PCS; 2018-06-12)
PROC: 5A1221Z Performance of Cardiac Output, Continuous (ICD-10-PCS; 2018-06-12)
PROC: B24BZZ4 Ultrasonography of Heart with Aorta, Transesophageal (ICD-10-PCS; 2018-06-12)
PROC: 02HV33Z Insertion of Infusion Device into Superior Vena Cava, Percutaneous Approach (ICD-10-PCS; 2018-06-12)
PROC: 03HY32Z Insertion of Monitoring Device into Upper Artery, Percutaneous Approach (ICD-10-PCS; 2018-06-12)
PROC: B34HZZZ Ultrasonography of Right Upper Extremity Arteries (ICD-10-PCS; 2018-06-12)
DX: I21.4 Non-ST elevation (NSTEMI) myocardial infarction (principal); I50.32 Chronic diastolic (congestive) heart failure; I13.0 Hypertensive heart and chronic kidney disease with heart failure and stage 1 through stage 4 chronic kidney disease, or unspecified chronic kidney disease; I16.1 Hypertensive emergency; N18.9 Chronic kidney disease, unspecified; H54.62 Unqualified visual loss, left eye, normal vision right eye; E86.0 Dehydration; E87.6 Hypokalemia; N40.0 Benign prostatic hyperplasia without lower urinary tract symptoms; M47.9 Spondylosis, unspecified; E78.5 Hyperlipidemia, unspecified; M54.9 Dorsalgia, unspecified; G89.29 Other chronic pain; I25.110 Atherosclerotic heart disease of native coronary artery with unstable angina pectoris; I45.10 Unspecified right bundle-branch block; Z79.899 Other long term (current) drug therapy; Z79.82 Long term (current) use of aspirin; Z82.49 Family history of ischemic heart disease and other diseases of the circulatory system
CPT/HCPCS: 0232T; 93306; 93312; 93325; 93459; 96374; 96375; 99285; 36415; 36600; 71045; 71275; 72191; 74174; 74175; 76700; 76775; 80048; 80053; 80061; 81003; 82330; 82435; 82570; 82803; 82947; 82948; 83036; 83735; 83880; 84100; 84132; 84156; 84295; 84484; 84585; 85018; 85025; 85027; 85347; 85384; 85610; 85730; 86885; 86900; 86901; 86920; 87070; 93005; 93880; 93971; 94002; 94003; 94010; 94667; 94760; 97116; 97162; 97530; 99152; 99153; A4620; A6212; A6213; A6255; A6257; A6258; A6402; A6449; A7000; A7048; C1751; C1769; J0360; J0690; J1200; J1644; J1815; J1885; J1940; J2001; J2060; J2150; J2250; J2270; J2370; J2405; J2440; J2704; J2720; J3010; J3370; J3475; J3480; J3490; J7030; J7120; P9045; P9047; Q9967